=== PATIENT | male | born 1975 | race Native Hawaiian/Other Pacific Islander ===

== ENCOUNTER 2016-07-02 01:51 | Inpatient (IN) | payer MEDICAID, OTHER ==
--- NOTE | 2016-07-02 02:34 | C.PDOC ---
History Of Present Illness 40 year old patient presents to the ED complaining of left wrist pain s/p falling prior to arrival. Patient states he broke his wrist about 20 years ago. Patient admits to drinking alcohol prior to the injury. Time Seen by Provider: 07/02/16 02:13 Chief Complaint (Nursing): Upper Extremity Problem/Injury History Per: Patient, Family History/Exam Limitations: intoxication Onset/Duration Of Symptoms: Hrs (prior to arrival) Current Symptoms Are (Timing): Still Present Quality: "Pain" Severity: Severe Pain Scale Rating Of: 7 Exacerbating Factor(s): Movement Recent travel outside of the [place] States: No Past Medical History Reviewed: Historical Data, Nursing Documentation, Vital Signs Vital Signs: Last Vital Signs Temp 97.5 F L 07/02/16 03:38 Pulse 76 07/02/16 05:56 Resp 18 07/02/16 05:56 BP 111/64 07/02/16 05:56 Pulse Ox 99 07/02/16 06:01 - [facility] Procedures SUTURE DUODEN ULCER SITE (10/20/12) Family History: States: Unknown Family Hx - Social History Hx Tobacco Use: Yes Hx Alcohol Use: Yes Hx Substance Use: No - Immunization History Hx Tetanus Toxoid Vaccination: No Hx Influenza Vaccination: No Hx Pneumococcal Vaccination: No Review Of Systems Except As Marked, All Systems Reviewed And Found Negative. Musculoskeletal: Positive for: Other (left wrist pain) Physical Exam - Physical Exam Appears: Non-toxic, No Acute Distress, Other ((+) AOB) Skin: Warm, Dry Head: Atraumatic Eye(s): bilateral: Normal Inspection Cardiovascular: Rhythm Regular Extremity: Normal ROM, No Calf Tenderness, Capillary Refill (<2 seconds), Other (left wrist: (+)swelling (+)obvious deformity (+)strong pulse (+)ROM intact (+)< 2 seconds capillary refill (+)normal sensation to fingers) Extremity: Left: Normal Color And Temperature Pulses: Left Radial: Normal, Right Radial: Normal Neurological/Psych: No Normal Motor ( but moving all figers), Normal Sensation Gait: Steady ED Course And Treatment - Laboratory Results Result Diagrams: 07/02/16 04:53 07/02/16 04:53 O2 Sat by Pulse Oximetry: 99 (RA) Pulse Ox Interpretation: Normal - Other Rad left wrist x-ray X-Ray: Viewed By Me (and dr Aranda) Interpretation: Distal radius fx with complete displacement Progress Note: Toradol given. Left wrist x-ray taken. Reduction was attempted by Dr. Aranda and I. Hematoma block done. Patient was under conscious sedation ( consent signed by pt) under care of Dr. Aranda. 0340 [address] call made to Dr. Barclay. 0435 Dr. Barclay called back. Case discussed with Dr. Barclay who is aware of the plan and advises to admit the patient to the medical floor. Dr. Barclay will evaluate the patient later this morning. 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 - Scribe Statement The provider has reviewed the documentation as recorded by the Scribe Marina Gonzales All medical record entries made by the Scribe were at my direction and personally dictated by me. I have reviewed the chart and agree that the record accurately reflects my personal performance of the history, physical exam, medical decision making, and the department course for this patient. I have also personally directed, reviewed, and agree with the discharge instructions and disposition.
[2016-07-02] MEDS ORDERED: Sodium Chloride 0.9% 1,000 ML IV ONE (02:46)
[2016-07-02] MEDS ORDERED: Propofol 10 mg/ml Inj (20 ML) IV ONE (02:46)
[2016-07-02] MEDS ORDERED: Propofol 10 mg/ml Inj (20 ML) ONE (02:49)
[2016-07-02] MEDS ORDERED: Sodium Chloride 0.9% 1,000 ML ONE (02:49)
[2016-07-02 04:57] LABS: BASO # 0.1 K/uL (0.0-0.2); BASO % 1.3 % (0.0-2.0); EOS # 0.5 K/uL (0.0-0.7); EOS % 7.3 % (0.0-4.0); HEMATOCRIT 47.7 % (35.0-51.0); LYMPH # 3.3 K/uL (1.0-4.3); MEAN CELL VOLUME 91.6 fL (80.0-94.0); MEAN CORPUSCULAR HEMOGLOBIN 30.3 pg (27.0-31.0); MEAN CORPUSCULAR HGB CONC 33.1 g/dL (33.0-37.0); MEAN PLATELET VOLUME 8.5 fL (7.2-11.7); MONO # 0.4 K/uL (0.0-0.8); MONO % 6.2 % (0.0-10.0); NRBC % 0.1 % (0.0-2.0); RED CELL DISTRIBUTION WIDTH 13.3 % (11.5-14.5); WHITE BLOOD COUNT 7.2 K/uL (4.8-10.8)
[2016-07-02 05:07] LABS: CHLORIDE 98 mmol/L (98-107); POTASSIUM 3.7 mmol/L (3.6-5.2); SODIUM 143 mmol/L (132-148)
[2016-07-02 05:09] LABS: AST/SGOT 88 U/L (17-59); BILIRUBIN,TOTAL 0.3 mg/dL (0.2-1.3); CARBON DIOXIDE 26 mmol/L (22-30); GFR AFRICAN-AMERICAN > 60
[2016-07-02 05:10] LABS: ALB/GLOB RATIO 1.4 (1.0-2.1); ALKALINE PHOSPHATASE 49 U/L (38-126); ALT/SGPT 99 U/L (21-72); BLOOD UREA NITROGEN 17 mg/dL (9-20); GLUCOSE,RANDOM 114 mg/dL (75-110); TOTAL PROTEIN 7.7 g/dL (6.3-8.3)
[2016-07-02 05:11] LABS: CALCIUM 8.8 mg/dl (8.6-10.4)
--- NOTE | 2016-07-02 05:31 | CP.PCM.HP ---
<Noel ALONZODiana - Last Filed: 07/02/16 05:23> History of Present Illness - History of Present Illness History of Present Illness: Patient is a 40 year old male with past medical history of gastritis with perforated duodenal ulcer and left arm fracture who presents to the ED s/p fall. Patient states that he was drinking with coworkers after work yesterday evening and later fell on the stairs going up to his apartment. Patient states he had a couple shots and a few beers but denies regular alcohol consumption. Patient states he tried to break his fall with his left hand. Patient states the pain was excruciating at the time, but denies loss of consciousness or head trauma during fall. Patient currently resting comfortably in the ED after receiving propofol for attempt at reduction of distal radius fracture seen on x- ray. Patient currently denying any complaints including dizziness, chest pain, abdominal pain, nausea, vomiting, back pain, headache. PMD: none PMHx: gastritis with duodenal ulcer perforation, fracture of left arm 19-20 years ago Surgeries: repair of duodenal ulcer perforation in 2012 Meds: denies FamHx: Mom with diabetes Social history: quit smoking 2 years ago, former 1/2 ppd smoker for 10+ years; denies regular alcohol consumption; denies drug use currently, admits to use in distant past 20+ years ago; works in a restaurant; lives with in apt on 2nd floor Allergies: denies Present on Admission - Present on Admission Any Indicators Present on Admission: No Review of Systems - Constitutional Constitutional: absent: Chills, Fever, Headache, Weakness - EENT Eyes: absent: Change in Vision - Cardiovascular Cardiovascular: absent: Chest Pain, Dyspnea - Respiratory Respiratory: absent: Cough, Dyspnea - Gastrointestinal Gastrointestinal: absent: Abdominal Pain, Nausea, Vomiting - Genitourinary Genitourinary: absent: Dysuria - Musculoskeletal Musculoskeletal: Other (left wrist pain). absent: Back Pain - Neurological Neurological: absent: Confusion, Frequent Falls Past Patient History - Infectious Disease Hx of Infectious Diseases: None - Past Social History Smoking Status: Former Smoker - GASTROINTESTINAL Hx Gastroesophageal Reflux: Yes - PSYCHIATRIC Hx Substance Use: No - SURGICAL HISTORY Hx Surgeries: Yes Other/Comment: abdominal surgery - ANESTHESIA Hx Anesthesia: Yes Hx Anesthesia Reactions: No Meds Allergies/Adverse Reactions: Allergies Allergy/AdvReac Type Severity Reaction Status Date / Time No Known Allergies Allergy Verified 07/02/16 01:59 Physical Exam - Constitutional Appears: Non-toxic, No Acute Distress - Head Exam Head Exam: ATRAUMATIC, NORMOCEPHALIC - Eye Exam Eye Exam: EOMI - ENT Exam ENT Exam: Mucous Membranes Moist - Respiratory Exam Respiratory Exam: Clear to Auscultation Bilateral, NORMAL BREATHING PATTERN. absent: Rales, Rhonchi, Wheezes - Cardiovascular Exam Cardiovascular Exam: +S1, +S2 - GI/Abdominal Exam GI & Abdominal Exam: Normal Bowel Sounds, Soft. absent: Tenderness - Extremities Exam Extremities exam: Negative for: pedal edema Additional comments: left forearm splinted fingers left hand with intact sensation, normal capillary refill, patient able to move all fingers - Neurological Exam Neurological exam: Alert - Psychiatric Exam Psychiatric exam: Normal Affect - Skin Skin Exam: Dry, Normal Color, Warm Results - Vital Signs Recent Vital Signs: Last Vital Signs Temp 97.5 F L 07/02/16 03:38 Pulse 90 07/02/16 04:08 Resp 16 07/02/16 04:08 BP 102/60 07/02/16 04:08 Pulse Ox 99 07/02/16 04:36 - Labs Result Diagrams: 07/02/16 04:53 07/02/16 04:53 Labs: Laboratory Results - last 24 hr 07/02/16 04:53 WBC 7.2 RBC 5.20 Hgb 15.8 Hct 47.7 MCV 91.6 MCH 30.3 MCHC 33.1 RDW 13.3 Plt Count 247 MPV 8.5 Neut % (Auto) 39.2 L Lymph % (Auto) 46.0 H [place] % (Auto) 6.2 Eos % (Auto) 7.3 H Baso % (Auto) 1.3 Neut # 2.8 Lymph # 3.3 [place] # 0.4 Eos # 0.5 Baso # 0.1 PT 10.7 INR 1.0 APTT 30 Sodium 143 Potassium 3.7 Chloride 98 Carbon Dioxide 26 Anion Gap 23 H BUN 17 Creatinine 1.1 Est GFR ( Amer) > 60 Est GFR (Non-Af Amer) > 60 Random Glucose 114 H Calcium 8.8 Total Bilirubin 0.3 AST 88 H D ALT 99 H D Alkaline Phosphatase 49 Total Protein 7.7 Albumin 4.5 Globulin 3.3 Albumin/Globulin Ratio 1.4 Assessment & Plan (1) Wrist fracture, left Assessment and Plan: xray shows distal radius fracture reduction attempted in ED, patient given propofol in ED prior to attempt- fracture not reduced on repeat xrays Dr. Barclay, orthopedics, aware of patient, will see later today CBC/ CMP/ Coags ordered will check CXR, EKG for preoperative risk assessment patient given toradol in ER but will avoid NSAIDs due to history of gastritis and ulcer perforation morphine 1mg IV q4 for pain, will titrate up as necessary Patient NPO for now in case of OR Status: Acute (2) Prophylactic measure Assessment and Plan: SCDs protonix 40mg daily holding chemical anticoagulation in case of OR today Status: Acute <Gualberto Winslow - Last Filed: 07/02/16 06:15> Results - Vital Signs Recent Vital Signs: Last Vital Signs Temp 97.5 F L 07/02/16 03:38 Pulse 76 07/02/16 05:56 Resp 18 07/02/16 05:56 BP 111/64 07/02/16 05:56 Pulse Ox 99 07/02/16 06:05 - Labs Result Diagrams: 07/02/16 04:53 07/02/16 04:53 Labs: Laboratory Results - last 24 hr 07/02/16 04:53 WBC 7.2 RBC 5.20 Hgb 15.8 Hct 47.7 MCV 91.6 MCH 30.3 MCHC 33.1 RDW 13.3 Plt Count 247 MPV 8.5 Neut % (Auto) 39.2 L Lymph % (Auto) 46.0 H [place] % (Auto) 6.2 Eos % (Auto) 7.3 H Baso % (Auto) 1.3 Neut # 2.8 Lymph # 3.3 [place] # 0.4 Eos # 0.5 Baso # 0.1 PT 10.7 INR 1.0 APTT 30 Sodium 143 Potassium 3.7 Chloride 98 Carbon Dioxide 26 Anion Gap 23 H BUN 17 Creatinine 1.1 Est GFR ( Amer) > 60 Est GFR (Non-Af Amer) > 60 Random Glucose 114 H Calcium 8.8 Total Bilirubin 0.3 AST 88 H D ALT 99 H D Alkaline Phosphatase 49 Total Protein 7.7 Albumin 4.5 Globulin 3.3 Albumin/Globulin Ratio 1.4 Assessment & Plan - Date & Time Date: 07/02/16 (I have seen and examined the patient. I agree with the findings and plan of care as documented by Dr. Cohen. Patient with left wrist fracture secondary to mechanical fall. Denies LOC. No head trauma. Consult to ortho. History of perforated gastric ulcer. Avoid NSAIDs for now. Morphine for pain. Medically optimize. Monitor for acute changes.) Time: 06:13 Attending/Attestation - Attestation I have personally seen and examined this patient.: Yes I have fully participated in the care of the patient.: Yes I have reviewed all pertinent clinical information: Yes
[2016-07-02] MEDS ORDERED: Sodium Chloride 0.9% 1,000 ML IV SCH (07:15)
--- NOTE | 2016-07-02 09:04 | RAD ---
HISTORY: preop COMPARISON: 10/20/2012 FINDINGS: LUNGS: No active pulmonary disease. PLEURA: No significant pleural effusion identified, no pneumothorax apparent. CARDIOVASCULAR: Normal. OSSEOUS STRUCTURES: No significant abnormalities. VISUALIZED UPPER ABDOMEN: Normal. OTHER FINDINGS: None. IMPRESSION: No active disease.
[2016-07-02 09:05] VITALS: PULSE 83; RESP 20
--- NOTE | 2016-07-02 09:42 | CP.PCM.PN ---
<Fadia Tan - Last Filed: 07/02/16 12:50> Subjective - Date & Time of Evaluation Date of Evaluation: 07/02/16 Time of Evaluation: 09:42 - Subjective Subjective: Patient seen and examined at bedside. No acute events overnight per nursing. Patient is resting comfortably on exam. Patient reports this is the second fracture to left upper extremity he has suffered. He states his pain is well controlled and denies numbness or tingling to the affected area. Patient denies fever, chills, chest pain, palpitations, shortness of breath, abdominal pain, nausea, vomiting, diarrhea, constipation, increased urinary frequency or dysuria. Objective - Vital Signs/Intake and Output Vital Signs (last 24 hours): Temp Pulse Resp BP Pulse Ox 98.1 F 83 20 113/58 L 96 07/02/16 09:04 07/02/16 09:04 07/02/16 09:04 07/02/16 09:04 07/02/16 09:04 - Medications Medications: Current Medications Sodium Chloride (Sodium Chloride 0.9%) 1,000 mls @ 100 mls/hr IV .Q10H [facility] Last Admin: 07/02/16 09:36 Dose: 100 mls/hr Morphine Sulfate (Morphine) 1 mg IVP Q4 PRN PRN Reason: Pain, moderate (4-7) Pantoprazole Sodium (Protonix Ec Tab) 40 mg PO DAILY [facility] Last Admin: 07/02/16 09:25 Dose: Not Given - Labs Labs: 07/02/16 04:53 07/02/16 04:53 PT 10.7 SECONDS (9.7-12.2) 07/02/16 04:53 INR 1.0 07/02/16 04:53 APTT 30 SECONDS (21-34) 07/02/16 04:53 - Constitutional Appears: Non-toxic, No Acute Distress - Head Exam Head Exam: ATRAUMATIC, NORMAL INSPECTION, NORMOCEPHALIC - Eye Exam Eye Exam: EOMI, Normal appearance, PERRL - ENT Exam ENT Exam: Mucous Membranes Moist - Neck Exam Neck Exam: Full ROM, Normal Inspection - Respiratory Exam Respiratory Exam: Clear to Ausculation Bilateral, NORMAL BREATHING PATTERN - Cardiovascular Exam Cardiovascular Exam: +S1, +S2. absent: Tachycardia, Gallop, Rubs, Murmur - GI/Abdominal Exam GI & Abdominal Exam: Soft. absent: Distended, Guarding, Tenderness - Extremities Exam Extremities Exam: absent: Pedal Edema, Tenderness Additional comments: Left upper extremity maintained in 90 degree position in sling. Patient is able to move his fingers without difficulty. Skin is warm and well-perfused. Patient demonstrated full range of motion to right upper extremity. No lower extremity edema appreciated, sensation intact, and pedal pulses 2+ throughout. - Neurological Exam Neurological Exam: Alert, Awake, Oriented x3 - Psychiatric Exam Psychiatric exam: Normal Affect, Normal Mood - Skin Skin Exam: Intact, Normal Color, Warm Assessment and Plan - Assessment and Plan (Free Text) Assessment: (1) Wrist fracture, left Assessment and Plan: xray shows distal radius fracture reduction attempted in ED, patient given propofol in ED prior to attempt- fracture not reduced on repeat xrays Dr. Barclay, orthopedics, aware of patient, will see later today Preoperative risk assessment: CXR: negative, EKG: normal sinus rhythm, nonspecific ST and T wave changes. DETSKY score: 0 Morphine 1mg IV q4 for pain. Will avoid NSAIDs due to history of gastritis and ulcer perforation Normal Saline IV @100cc f/u left wrist and elbow x-ray. Per ortho, Dr Barclay, patient stable for discharge, continue splint, and will need to follow-up in ortho clinic. Status: Acute (2) Transaminitis Assessment and Plan: History of alcohol use prior to fall last night. Patient denies frequent alcohol use. AST/ALT: 88/99 Will monitor (3) Prophylactic measure Assessment and Plan: SCDs protonix 40mg daily holding chemical anticoagulation in case of OR today <Priscilla Lino V - Last Filed: 07/08/16 13:51> Objective - Vital Signs/Intake and Output Vital Signs (last 24 hours): Temp Pulse Resp BP Pulse Ox 97.5 F L 83 20 138/88 97 07/02/16 15:00 07/02/16 16:00 07/02/16 15:00 07/02/16 15:00 07/02/16 15:00 - Labs Labs: 07/02/16 04:53 07/02/16 04:53 PT 10.7 SECONDS (9.7-12.2) 07/02/16 04:53 INR 1.0 07/02/16 04:53 APTT 30 SECONDS (21-34) 07/02/16 04:53 Attending/Attestation - Attestation I have personally seen and examined this patient.: Yes I have fully participated in the care of the patient.: Yes I have reviewed all pertinent clinical information, including history, physical exam and plan: Yes Notes (Text): This is late computer entry for 07/02/16 Patient seen, examined, and case discussed with day-time resident. Patient seen with and young son at bedside. Patient denies acute complaints. Patient's sensation intact bilateral, capillary refill <2 secs, able to passively move his fingers bilateral, and sensation intact. Orthopedic evaluated patient's imaging including wrist and elbow, deemed patient does not need surgery at this time, deemed patient is stable for discharge and recommended follow-up in the orthopedic clinic in [place]. Patient denies symptoms or signs of alcohol abuse, nor signs of symptoms of alcohol withdrawal. Patient is medically stable for discharge today given orthopedics recommendations. Patient also advised to establish care at the [facility] ([phone]) within one week of hospital discharge.
[2016-07-02] MEDS ORDERED: Pantoprazole 40 mg EC Tab PO SCH (10:00)
--- NOTE | 2016-07-02 11:34 | CP.PCM.CON ---
History of Present Illness - History of Present Illness History of Present Illness: ORTHO CONSULT NOTE 40 y/o male seen and evaluated and bedside w/p trauma to left wrist. Patient states that yesterday he was out with his friends yesterday when he was drinking and fell while trying to go up stairs. Patient states that when he fell he tried to break his fall and felt excrutiating pain. Patient states that he presented to the ED this morning and states that he was sedated where attempted reduction of the wrist was performed and then placed into a splint. Patient states that he is in minimal pain, but is tolerable. States that he broke the same arm roughly 19 years ago. Denies any tinging sensation in his hand. Denies any numbness in the hand. Denies any f/c/n/v/sob. Past Patient History - Infectious Disease Hx of Infectious Diseases: None - Past Medical History & Family History Past Medical History?: Yes - Past Social History Smoking Status: Former Smoker - CARDIAC Hx Cardiac Disorders: No - PULMONARY Hx Respiratory Disorders: No - NEUROLOGICAL Hx Neurological Disorder: No - HEENT Hx HEENT Problems: No - RENAL Hx Chronic Kidney Disease: No - ENDOCRINE/METABOLIC Hx Endocrine Disorders: No - HEMATOLOGICAL/ONCOLOGICAL Hx Blood Disorders: No - INTEGUMENTARY Hx Dermatological Problems: No - MUSCULOSKELETAL/RHEUMATOLOGICAL Hx Musculoskeletal Disorders: No Hx Falls: Yes - GASTROINTESTINAL Hx Gastrointestinal Disorders: Yes Hx Gastroesophageal Reflux: Yes Hx Ulcer: Yes - GENITOURINARY/GYNECOLOGICAL Hx Genitourinary Disorders: No - PSYCHIATRIC Hx Psychophysiologic Disorder: No Hx Substance Use: No - SURGICAL HISTORY Hx Surgeries: Yes Other/Comment: abdominal surgery for ruptured gastric ulcer - ANESTHESIA Hx Anesthesia: Yes Hx Anesthesia Reactions: No Hx Malignant Hyperthermia: No Has any member of the family had a problem w/ anesthesia?: No Meds Allergies/Adverse Reactions: Allergies Allergy/AdvReac Type Severity Reaction Status Date / Time No Known Allergies Allergy Verified 07/02/16 01:59 - Medications Medications: Current Medications Sodium Chloride (Sodium Chloride 0.9%) 1,000 mls @ 100 mls/hr IV .[facility]10H [facility] Last Admin: 07/02/16 09:36 Dose: 100 mls/hr Morphine Sulfate (Morphine) 1 mg IVP Q4 PRN PRN Reason: Pain, moderate (4-7) Pantoprazole Sodium (Protonix Ec Tab) 40 mg PO DAILY [facility] Last Admin: 07/02/16 09:25 Dose: Not Given Physical Exam - Constitutional Appears: Well, Non-toxic, No Acute Distress - Neurological Exam Neurological exam: Alert, Oriented x3 - Psychiatric Exam Psychiatric exam: Depressed, Normal Affect - Skin Skin Exam: Normal Color, Warm Additional comments: Patient is in an ao wrist splint at 90 degrees. patient is able to move digits w/o pain Sensation availabe to all digits Diffuse edema noted, no visibla blisters noted. Warmth to digits noted. Results - Vital Signs Recent Vital Signs: Last Vital Signs Temp 98.1 F 07/02/16 09:04 Pulse 83 07/02/16 09:04 Resp 20 07/02/16 09:04 BP 113/58 L 07/02/16 09:04 Pulse Ox 96 07/02/16 09:04 - Labs Result Diagrams: 07/02/16 04:53 07/02/16 04:53 Labs: Laboratory Results - last 24 hr 07/02/16 07/02/16 04:53 10:01 WBC 7.2 RBC 5.20 Hgb 15.8 Hct 47.7 MCV 91.6 MCH 30.3 MCHC 33.1 RDW 13.3 Plt Count 247 MPV 8.5 Neut % (Auto) 39.2 L Lymph % (Auto) 46.0 H [place] % (Auto) 6.2 Eos % (Auto) 7.3 H Baso % (Auto) 1.3 Neut # 2.8 Lymph # 3.3 [place] # 0.4 Eos # 0.5 Baso # 0.1 PT 10.7 INR 1.0 APTT 30 Sodium 143 Potassium 3.7 Chloride 98 Carbon Dioxide 26 Anion Gap 23 H BUN 17 Creatinine 1.1 Est GFR ( Amer) > 60 Est GFR (Non-Af Amer) > 60 Random Glucose 114 H Calcium 8.8 Total Bilirubin 0.3 AST 88 H D ALT 99 H D Alkaline Phosphatase 49 Total Protein 7.7 Albumin 4.5 Globulin 3.3 Albumin/Globulin Ratio 1.4 Hepatitis A IgM Ab Negative Hep Bs Antigen Negative Hep B Core IgM Ab Negative Hepatitis C Antibody Negative Assessment & Plan - Assessment and Plan (Free Text) Assessment: 40 y/o male evaluated with left distal transverse non articular mildly displaced radial fracture. Plan: Patient evaluated and chart reviewed Discussed with Dr. Barclay. Per Dr. Barclay patient is stable Will need to have forearm and elbow x-rays prior to d/c. Will need to have f/u with Dr. Barclay in his office or clinic [facility] for fixation of the fracture. Keep in AO splint. Needs to call for f/u. If patient notices any decrease in skin temp, numbing or tingling or inability to move digits to call Dr. Barclay or present to ED for further eval.
--- NOTE | 2016-07-02 11:36 | RAD ---
PROCEDURE: Left Wrist Radiographs. HISTORY: pain, fall, h/o of previous FX COMPARISON: None. FINDINGS: BONES: A complete distal radial shaft fracture with volar apical angulation, radial and volar displacement and overriding is present. JOINTS: Normal. No dislocation. SOFT TISSUES: Volar soft tissue swelling OTHER FINDINGS: None. IMPRESSION: Complete distal radial shaft fracture -displaced and angulated as described above
--- NOTE | 2016-07-02 11:38 | RAD ---
PROCEDURE: Left Wrist Radiographs. HISTORY: Post reduction films COMPARISON: Pre reduction left wrist x-ray 07/02/2016 02:33 hours FINDINGS: BONES: The complete distal radial shaft fracture is renoted its volar and radial apical angulation is slightly decreased there is persistent overriding present. Examination is made through casting material JOINTS: Normal. No dislocation. SOFT TISSUES: Normal. OTHER FINDINGS: None. IMPRESSION: Postreduction study as detailed above
--- NOTE | 2016-07-02 11:38 | CARD ---
APPROVED REPORT EKG Measurement Heart [id number] <Conclusion> Normal sinus rhythm Nonspecific ST and T wave abnormality Abnormal ECG
--- NOTE | 2016-07-02 16:16 | RAD ---
PROCEDURE: Radiographs of the Left Forearm HISTORY: fracture COMPARISON: Left Wrist x-ray is 07/02/2016. TECHNIQUE: Frontal and lateral views obtained. FINDINGS: BONES: The previously of its complete fracture through the distal radial shaft with collar anterior displacement of distal fracture fragment and override is as before. Compared earlier exams there is less volar apical lingular elongated. Examination is made through casting material no dislocation suggested JOINT SPACES: Unremarkable. OTHER FINDINGS: None. IMPRESSION: Distal radial fracture as described above
--- NOTE | 2016-07-02 16:25 | RAD ---
PROCEDURE: Radiographs of the left elbow. HISTORY: fracture COMPARISON: Left forearm FINDINGS: BONES: The distal left radial shaft fracture evident on left forearm x-rays is not visually included on this exam. On the oblique view of this elbow exam, there is hyperdensity projecting near the inferior medial epicondyle. This is likely extrinsic and related to casting material. No suggestion of a displays fracture fragment on the frontal view of the elbow in this region is suggested JOINTS: Normal. No osteoarthritis. SOFT TISSUES: Normal. JOINT EFFUSION: None. OTHER FINDINGS: Examination is made through casting IMPRESSION: No elbow dislocation. No elbow level fracture suspect Patient's radial shaft fracture is beyond inferior field of this field
[2016-07-02 16:52] VITALS: BP 138/88; TEMP 97.5; O2SAT 97
--- NOTE | 2016-07-02 21:39 | CP.PCM.DIS ---
<DominickFadia - Last Filed: 07/02/16 21:36> Provider - Provider Date of Admission: 07/02/16 04:51 Attending physician: Gualberto Winslow MD Primary care physician: none Consults: Dr. Ning Boo Time Spent in preparation of Discharge (in minutes): 31 Diagnosis - Discharge Diagnosis (1) Distal radius fracture, left Status: Acute Comment: please see hospital course (2) Prophylactic measure Status: Acute Comment: please see hospital course Hospital Course - Lab Results Lab Results: Most Recent Lab Values WBC 7.2 K/uL (4.8-10.8) 07/02/16 04:53 RBC 5.20 Mil/uL (4.40-5.90) 07/02/16 04:53 Hgb 15.8 g/dL (12.0-18.0) 07/02/16 04:53 Hct 47.7 % (35.0-51.0) 07/02/16 04:53 MCV 91.6 fL (80.0-94.0) 07/02/16 04:53 MCH 30.3 pg (27.0-31.0) 07/02/16 04:53 MCHC 33.1 g/dL (33.0-37.0) 07/02/16 04:53 RDW 13.3 % (11.5-14.5) 07/02/16 04:53 Plt Count 247 K/uL (130-400) 07/02/16 04:53 MPV 8.5 fL (7.2-11.7) 07/02/16 04:53 Neut % (Auto) 39.2 % (50.0-75.0) L 07/02/16 04:53 Lymph % (Auto) 46.0 % (20.0-40.0) H 07/02/16 04:53 Marshall % (Auto) 6.2 % (0.0-10.0) 07/02/16 04:53 Eos % (Auto) 7.3 % (0.0-4.0) H 07/02/16 04:53 Baso % (Auto) 1.3 % (0.0-2.0) 07/02/16 04:53 Neut # 2.8 K/uL (1.8-7.0) 07/02/16 04:53 Lymph # 3.3 K/uL (1.0-4.3) 07/02/16 04:53 Marshall # 0.4 K/uL (0.0-0.8) 07/02/16 04:53 Eos # 0.5 K/uL (0.0-0.7) 07/02/16 04:53 Baso # 0.1 K/uL (0.0-0.2) 07/02/16 04:53 PT 10.7 SECONDS (9.7-12.2) 07/02/16 04:53 INR 1.0 07/02/16 04:53 APTT 30 SECONDS (21-34) 07/02/16 04:53 Sodium 143 mmol/L (132-148) 07/02/16 04:53 Potassium 3.7 mmol/L (3.6-5.2) 07/02/16 04:53 Chloride 98 mmol/L (98-107) 07/02/16 04:53 Carbon Dioxide 26 mmol/L (22-30) 07/02/16 04:53 Anion Gap 23 (10-20) H 07/02/16 04:53 BUN 17 mg/dL (9-20) 07/02/16 04:53 Creatinine 1.1 MG/DL (0.8-1.5) 07/02/16 04:53 Est GFR ( Amer) > 60 07/02/16 04:53 Est GFR (Non-Af Amer) > 60 07/02/16 04:53 Random Glucose 114 mg/dL (75-110) H 07/02/16 04:53 Calcium 8.8 mg/dl (8.6-10.4) 07/02/16 04:53 Total Bilirubin 0.3 mg/dL (0.2-1.3) 07/02/16 04:53 AST 88 U/L (17-59) H D 07/02/16 04:53 ALT 99 U/L (21-72) H D 07/02/16 04:53 Alkaline Phosphatase 49 U/L (38-126) 07/02/16 04:53 Total Protein 7.7 g/dL (6.3-8.3) 07/02/16 04:53 Albumin 4.5 g/dL (3.5-5.0) 07/02/16 04:53 Globulin 3.3 gm/dL (2.2-3.9) 07/02/16 04:53 Albumin/Globulin Ratio 1.4 (1.0-2.1) 07/02/16 04:53 Hepatitis A IgM Ab Negative (NEGATIVE) 07/02/16 10:01 Hep Bs Antigen Negative (NEGATIVE) 07/02/16 10:01 Hep B Core IgM Ab Negative (NEGATIVE) 07/02/16 10:01 Hepatitis C Antibody Negative (NEGATIVE) 07/02/16 10:01 - Hospital Course Hospital Course: HPI: Patient is a 40 year old male with past medical history of gastritis with perforated duodenal ulcer and left arm fracture who presents to the ED s/p fall. Patient states that he was drinking with coworkers after work yesterday evening and later fell on the stairs going up to his apartment. Patient states he had a couple shots and a few beers but denies regular alcohol consumption. Patient states he tried to break his fall with his left hand. Patient states the pain was excruciating at the time, but denies loss of consciousness or head trauma during fall. Patient currently resting comfortably in the ED after receiving propofol for attempt at reduction of distal radius fracture seen on x- ray. Patient currently denying any complaints including dizziness, chest pain, abdominal pain, nausea, vomiting, back pain, headache. PMD: none PMHx: gastritis with duodenal ulcer perforation, fracture of left arm 19-20 years ago Surgeries: repair of duodenal ulcer perforation in 2012 Meds: denies FamHx: Mom with diabetes Social history: quit smoking 2 years ago, former 1/2 ppd smoker for 10+ years; denies regular alcohol consumption; denies drug use currently, admits to use in distant past 20+ years ago; works in a restaurant; lives with in [facility] on 2nd floor Allergies: denies During hospital course, the following imaging was done: Wrist X-Ray (07/02/16, 02:18): A complete distal radial shaft fracture with volar apical angulation, radial and volar displacement and overriding is present. Wrist X-Ray (07/02/16, 03:37): Post-reduction: The complete distal radial shaft fracture is renoted its volar and radial apical angulation is slightly decreased. There is persistent overriding present. Chest X-Ray (07/02/16): No active pulmonary disease. Elbow X-Ray (07/02/16): No elbow dislocation. No elbow level fracture suspect. Forearm X-Ray (07/02/16): The previously of its complete fracture through the distal radial shaft with collar anterior displacement of distal fracture fragment and override is as before. Compared earlier exams there is less volar apical lingular elongated. Imaging was done which indicated distal radial shaft fracture. Fracture was attempted to be reduced. Patient was given morphine 1 mg IV q4h prn for pain and NSAIDS were avoided due to patient's history of gastritis and duodenol ulcer perforation. Patient's arm was placed in sling. Anticoagulation was held in event patient would need to be taken to OR. SCDs were placed to patient's bilateral lower extremities and protonix 40 mg po daily were started for GI prophylaxis. Please note this is a summary of the patient course. Please see patient chart for full detail. Discharge Instructions: Patient medically stable for discharge. Per Orthopedist, patient to be discharged with splint. Patient to take the following prescription as needed for pain: Naproxen 500 mg 1 tab by mouth twice daily as needed. Patient made aware that he is at risk for potential GI bleed. Patient instructed to follow-up and establish care at [facility] in the basement of the hospital. Patient will be referred to orthopedic clinic. Patient instructed to follow-up with orthopedist within one week of discharge for further evaluation and care. Patient instructed to return to emergency department if symptoms recur. Patient given detailed instructions at bedside. Patient understands and agrees. - Date & Time of H&P Date of H&P: 07/02/16 Time of H&P: 05:23 Discharge Exam - Head Exam Head Exam: ATRAUMATIC, NORMAL INSPECTION, NORMOCEPHALIC - Eye Exam Eye Exam: EOMI, Normal appearance, PERRL - ENT Exam ENT Exam: Mucous Membranes Moist - Neck Exam Neck exam: Full Rom - Respiratory Exam Respiratory Exam: Clear to PA & Lateral, NORMAL BREATHING PATTERN, UNREMARKABLE. absent: Rales, Rhonchi, Wheezes - Cardiovascular Exam Cardiovascular Exam: +S1, +S2 - GI/Abdominal Exam GI & Abdominal Exam: Normal Bowel Sounds. absent: Rigid, Soft - Extremities Exam Additional comments: Left upper extremity maintained in 90 degree position in sling. Patient is able to move his fingers without difficulty. Skin is warm and well-perfused. Patient demonstrated full range of motion to right upper extremity. No lower extremity edema appreciated, sensation intact, and pedal pulses 2+ throughout. - Back Exam Back exam: NORMAL INSPECTION - Neurological Exam Neurological exam: Alert, CN II-XII Intact, Oriented x3 - Psychiatric Exam Psychiatric exam: Normal Affect, Normal Mood - Skin Skin Exam: Intact, Normal Color, Warm Discharge Plan - Discharge Medications Prescriptions: Naproxen 0 mg PO BID #10 tab - Follow Up Plan Condition: STABLE Disposition: HOME/ ROUTINE Instructions: Naproxen (By mouth), Wrist Fracture in Adults (DC), Splint Care ( DC) Additional Instructions: Patient medically stable for discharge. Per Orthopedist, patient to be discharged with splint. Patient to take the following prescription as needed for pain: Naproxen 500 mg 1 tab by mouth twice daily as needed. Patient made aware that he is at risk for potential GI bleed. Patient instructed to follow-up and establish care at [facility] in the basement of the hospital. Patient will be referred to orthopedic clinic. Patient instructed to follow-up with orthopedist within one week of discharge for further evaluation and care. Patient instructed to return to emergency department if symptoms recur. Patient given detailed instructions at bedside. Patient understands and agrees. Referrals: [facility] [Outside] Codey Barclay MD [Staff Provider] - <Priscilla Lino V - Last Filed: 07/08/16 14:01> Provider - Provider Date of Admission: 07/02/16 04:51 Attending physician: Gualberto Winslow MD Hospital Course - Lab Results Lab Results: Most Recent Lab Values WBC 7.2 K/uL (4.8-10.8) 07/02/16 04:53 RBC 5.20 Mil/uL (4.40-5.90) 07/02/16 04:53 Hgb 15.8 g/dL (12.0-18.0) 07/02/16 04:53 Hct 47.7 % (35.0-51.0) 07/02/16 04:53 MCV 91.6 fL (80.0-94.0) 07/02/16 04:53 MCH 30.3 pg (27.0-31.0) 07/02/16 04:53 MCHC 33.1 g/dL (33.0-37.0) 07/02/16 04:53 RDW 13.3 % (11.5-14.5) 07/02/16 04:53 Plt Count 247 K/uL (130-400) 07/02/16 04:53 MPV 8.5 fL (7.2-11.7) 07/02/16 04:53 Neut % (Auto) 39.2 % (50.0-75.0) L 07/02/16 04:53 Lymph % (Auto) 46.0 % (20.0-40.0) H 07/02/16 04:53 Marshall % (Auto) 6.2 % (0.0-10.0) 07/02/16 04:53 Eos % (Auto) 7.3 % (0.0-4.0) H 07/02/16 04:53 Baso % (Auto) 1.3 % (0.0-2.0) 07/02/16 04:53 Neut # 2.8 K/uL (1.8-7.0) 07/02/16 04:53 Lymph # 3.3 K/uL (1.0-4.3) 07/02/16 04:53 Marshall # 0.4 K/uL (0.0-0.8) 07/02/16 04:53 Eos # 0.5 K/uL (0.0-0.7) 07/02/16 04:53 Baso # 0.1 K/uL (0.0-0.2) 07/02/16 04:53 PT 10.7 SECONDS (9.7-12.2) 07/02/16 04:53 INR 1.0 07/02/16 04:53 APTT 30 SECONDS (21-34) 07/02/16 04:53 Sodium 143 mmol/L (132-148) 07/02/16 04:53 Potassium 3.7 mmol/L (3.6-5.2) 07/02/16 04:53 Chloride 98 mmol/L (98-107) 07/02/16 04:53 Carbon Dioxide 26 mmol/L (22-30) 07/02/16 04:53 Anion Gap 23 (10-20) H 07/02/16 04:53 BUN 17 mg/dL (9-20) 07/02/16 04:53 Creatinine 1.1 MG/DL (0.8-1.5) 07/02/16 04:53 Est GFR ( Amer) > 60 07/02/16 04:53 Est GFR (Non-Af Amer) > 60 07/02/16 04:53 Random Glucose 114 mg/dL (75-110) H 07/02/16 04:53 Calcium 8.8 mg/dl (8.6-10.4) 07/02/16 04:53 Total Bilirubin 0.3 mg/dL (0.2-1.3) 07/02/16 04:53 AST 88 U/L (17-59) H D 07/02/16 04:53 ALT 99 U/L (21-72) H D 07/02/16 04:53 Alkaline Phosphatase 49 U/L (38-126) 07/02/16 04:53 Total Protein 7.7 g/dL (6.3-8.3) 07/02/16 04:53 Albumin 4.5 g/dL (3.5-5.0) 07/02/16 04:53 Globulin 3.3 gm/dL (2.2-3.9) 07/02/16 04:53 Albumin/Globulin Ratio 1.4 (1.0-2.1) 07/02/16 04:53 Hepatitis A IgM Ab Negative (NEGATIVE) 07/02/16 10:01 Hep Bs Antigen Negative (NEGATIVE) 07/02/16 10:01 Hep B Core IgM Ab Negative (NEGATIVE) 07/02/16 10:01 Hepatitis C Antibody Negative (NEGATIVE) 07/02/16 10:01 Attending/Attestation - Attestation I have personally seen and examined this patient.: Yes I have fully participated in the care of the patient.: Yes I have reviewed all pertinent clinical information, including history, physical exam and plan: Yes Notes (Text): Patient seen, examined and case discussed with day time resident. Per orthopedics, patient stable for discharge. Patient advised to Naproxen enteric coated 1-2 tab PRN pain for pain control. Patient recommended to follow-up at the orthopedic clinic at [facility] or to establish care at the [facility] and retrieve orthopedic referral to follow-up. Discuss discharge order and discharge instructions with day-time resident. This is a summary of patient's hospitalization. Please refer to full body of EMR for further details.
== END 2016-07-02 18:00 | disposition home or self-care (01) | DRG 563 ==
LOC: C.ER 01:51 → C.6T 04:51
PROVIDERS: ADMIT Family Medicine; ATTEND Family Medicine
PROC: 0PSJXZZ Reposition Left Radius, External Approach (ICD-10-PCS; principal; 2016-07-02)
DX: S52.592A Other fractures of lower end of left radius, initial encounter for closed fracture (principal); K21.9 Gastro-esophageal reflux disease without esophagitis; W19.XXXA Unspecified fall, initial encounter; Z87.11 Personal history of peptic ulcer disease; R74.0 Nonspecific elevation of levels of transaminase and lactic acid dehydrogenase [LDH]; Z72.89 Other problems related to lifestyle; Z87.891 Personal history of nicotine dependence